=== PATIENT | male | born 1935 | race Two or more races ===

== ENCOUNTER 2020-04-18 14:45 | Emergency (ER) | payer MEDICARE, MEDICAID ==
[~2020-04-18] VITALS: Ht 165.1 cm; Wt 70.3 kg
[2020-04-18 14:58] VITALS: BP 185/61
[2020-04-18] MEDS ORDERED: cefTRIAXone SOD 1,000 MG VL IM ONE (16:15)
[2020-04-18] MEDS ORDERED: LIDOCAINE 1% HCL (LOCAL ANESTH.) INJ 20ML MDV IJ ONE (16:15)
== END 2020-04-18 17:00 | disposition home or self-care (01) ==
LOC: ER 14:45
DX: L02.416 Cutaneous abscess of left lower limb (principal); E11.9 Type 2 diabetes mellitus without complications; I10 Essential (primary) hypertension
CPT/HCPCS: 10060; 87075; 87205; 96372; 99283; J0696; J2001

== ENCOUNTER 2020-04-21 15:45 | Emergency (ER) | payer MEDICARE, MEDICAID ==
[~2020-04-21] VITALS: Ht 165.1 cm; Wt 69.9 kg
[2020-04-21 16:25] VITALS: BP 138/66
== END 2020-04-21 17:16 | disposition home or self-care (01) ==
LOC: ER 15:45
DX: L02.416 Cutaneous abscess of left lower limb (principal); E11.9 Type 2 diabetes mellitus without complications; I10 Essential (primary) hypertension

== ENCOUNTER 2020-04-24 10:28 | Emergency (ER) | payer MEDICARE, MEDICAID ==
[~2020-04-24] VITALS: Ht 165.1 cm; Wt 65.8 kg
[2020-04-24 10:44] VITALS: BP 169/69
== END 2020-04-24 12:01 | disposition home or self-care (01) ==
LOC: ER 10:28
DX: L02.416 Cutaneous abscess of left lower limb (principal); E11.9 Type 2 diabetes mellitus without complications; I10 Essential (primary) hypertension

== ENCOUNTER 2020-06-13 12:36 | Inpatient (IN) | payer MEDICARE, MEDICAID ==
[~2020-06-13] VITALS: Ht 165.1 cm; Wt 65.8 kg
[2020-06-13 15:01] LABS: Basophils # (auto) 0 10 ^3/uL (0-0.2); Basophils % (auto) 0.7 % (0.0-2.0); Eosinophils # (auto) 0.3 10 ^3/uL (0-0.8); Eosinophils % (auto) 4.6 % (0.0-7.0); Hematocrit 43.5 % (41.0-53.0); Hemoglobin 14.8 g/dL (13.5-17.5); Lymphocytes # (auto) 1.7 10 ^3/uL (0.4-5.4); Lymphocytes % (auto) 27.8 % (10.0-50.0); Mean Corpuscular Hemoglobin 33.7 pg (28.0-32.0); Mean Corpuscular Volume 99.2 fL (80.0-100.0); Monocytes # (auto) 0.6 10 ^3/uL (0-1.3); Monocytes % (auto) 9.4 % (0.0-12.0); Neutrophils # (auto) 3.5 10 ^3/uL (1.6-8.6); Neutrophils % (auto) 57.5 % (37.0-80.0); Nucleated Red Blood Cells % 0.4 %; Red Blood Cells 4.39 10^6/uL (4.5-5.90); Red Cell Distribution Width 14.2 % (11.8-14.3)
[2020-06-13 15:22] LABS: Chloride 110 mmol/L (98-107); Potassium 4.1 mmol/L (3.5-5.1); Sodium 140 mmol/L (136-145)
[2020-06-13 15:27] LABS: Alanine Aminotransferase 18 U/L (16-61); Albumin 3.5 g/dL (3.4-5.0); Alkaline Phosphatase 88 U/L (45-117); Anion Gap 2 (5-15); Aspartate Aminotransferase 18 U/L (15-37); Bilirubin, Total 0.6 mg/dL (0.2-1.0); Blood Urea Nitrogen 13 mg/dL (7-18); Calcium 8.7 mg/dL (8.5-10.1); Carbon Dioxide 28 mmol/L (21-32); GFR African American 99 mL/min; GFR Non-African American 82 mL/min; Glucose 89 mg/dL (74-106); Total Protein 7.8 g/dL (6.4-8.2)
[2020-06-13] MEDS ORDERED: cloNIDine HCL 0.1 MG TAB PO ONE (21:30)
[2020-06-13 22:11] LABS: INR 1.04 (0.9-1.15); Partial Thromboplastin Time 26.4 sec (23.0-31.2)
[2020-06-14] MEDS ORDERED: ACETAMINOPHEN 500 MG TAB PO PRN (03:30)
[2020-06-14] MEDS ORDERED: MORPHINE SULFATE INJECTION 2 MG/ML SYRG IV PRN ×2 (03:30)
[2020-06-14] MEDS ORDERED: ONDANSETRON HCL 4 MG/2 ML VIAL IV PRN (03:30)
[2020-06-14] MEDS ORDERED: NITROGLYCERIN 0.4 MG SL TAB SL PRN (03:30)
[2020-06-14] MEDS ORDERED: DEXTROSE (50%) 50ML SYRG IV PRN (03:30)
[2020-06-14] MEDS ORDERED: HYDROcodone-ACET 5/325MG TAB PO PRN (03:30)
[2020-06-14] MEDS ORDERED: ATE50T PO (03:58)
[2020-06-14] MEDS ORDERED: GLIP5TAB12 PO (04:00)
[2020-06-14] MEDS ORDERED: BENA40TA8 PO (04:01)
[2020-06-14] MEDS ORDERED: SIMV-8 PO (04:02)
[2020-06-14] MEDS ORDERED: HYDR50TA15 PO (04:04)
[2020-06-14 05:00] VITALS: BP 149/68
[2020-06-14 05:16] VITALS: BP 145/65
[2020-06-14] MEDS ORDERED: PNEUMOCOCCAL VACC POLYS 25 MCG/0.5 ML VIAL IM ONE (05:45)
[2020-06-14] MEDS: CLINDAMYCIN 300MG IV 50 ML IV SCH ×2 (06:33→14:09)
[2020-06-14] MEDS: ACCU-CHEK COMFORT CURVE STRIP VI SCH ×3 (06:55→17:00)
[2020-06-14] MEDS: InsuLIN REG 1unit/0.01ml Soln (100units/ml) SC SCH ×3 (06:56→17:00)
[2020-06-14 08:45] VITALS: BP 157/69
[2020-06-14] MEDS ORDERED: HYDROCORTISONE 2.5% TOPICAL CREAM 30GM TUBE TOP SCH (10:00)
[2020-06-14] MEDS ORDERED: amLODIPine BESYLATE 5 MG TAB PO SCH (10:00)
[2020-06-14] MEDS ORDERED: FAMOTIDINE 20 MG TAB PO SCH (10:00)
[2020-06-14 15:34] VITALS: BP 157/69
[2020-06-14 17:00] VITALS: BP 169/82
[2020-06-14] MEDS ORDERED: glipiZIDE 5 MG TAB PO SCH (18:00)
[2020-06-14] MEDS ORDERED: ATORVASTATIN 20 MG TAB PO SCH (22:00)
[2020-06-14] MEDS ORDERED: hydrALAZINE HCL 25 MG TAB PO SCH (22:00)
[2020-06-15] MEDS ORDERED: BENAZEPRIL HCL 10 MG TAB PO SCH (10:00)
[2020-06-15] MEDS ORDERED: ATENOLOL 50 MG TAB PO SCH (10:00)
== END 2020-06-14 17:55 | disposition home or self-care (01) | DRG 606 ==
LOC: ER 12:36 → TELE 06-14 03:29 → TELE-WESTW 06-14 04:43
PROVIDERS: ADMIT Nurse Practitioner Acute Care; ATTEND Internal Medicine Geriatric Medicine
DX: L23.9 Allergic contact dermatitis, unspecified cause (principal); I50.43 Acute on chronic combined systolic (congestive) and diastolic (congestive) heart failure; B35.3 Tinea pedis; E11.9 Type 2 diabetes mellitus without complications; D69.6 Thrombocytopenia, unspecified; I11.0 Hypertensive heart disease with heart failure; Z20.822 Contact with and (suspected) exposure to COVID-19; Z28.21 Immunization not carried out because of patient refusal
CPT/HCPCS: 36415; 71045; 80053; 82962; 83036; 83880; 84484; 85025; 85610; 85730; 87426; 93005; 93970; G0378; J3490

== ENCOUNTER 2020-10-16 11:53 | Inpatient (IN) | payer OTHER, MEDICAID ==
[~2020-10-16] VITALS: Ht 162.6 cm; Wt 63.5 kg
[~2020-10-16 11:53] MED LIST: ATE50T PO; BENA40TA8 PO; GLIP5TAB12 PO; HYDR50TA15 PO; SIMV-8 PO
[2020-10-16 12:47] LABS: Eosinophils # (auto) 0.2 10 ^3/uL (0-0.8); Lymphocytes # (auto) 1.9 10 ^3/uL (0.4-5.4); Monocytes # (auto) 0.6 10 ^3/uL (0-1.3); Nucleated Red Blood Cells % 0.1 %
[2020-10-16 12:49] LABS: Basophils # (auto) 0.1 10 ^3/uL (0-0.2); Basophils % (auto) 0.8 % (0.0-2.0); Eosinophils % (auto) 2.4 % (0.0-7.0); Hematocrit 39.4 % (41.0-53.0); Hemoglobin 13.5 g/dL (13.5-17.5); Lymphocytes % (auto) 30.6 % (10.0-50.0); Mean Corpuscular Hemoglobin 34.5 pg (28.0-32.0); Mean Corpuscular Hgb Conc. 34.2 g/dL (32.0-36.0); Mean Corpuscular Volume 100.9 fL (80.0-100.0); Monocytes % (auto) 9.5 % (0.0-12.0); Neutrophils # (auto) 3.6 10 ^3/uL (1.6-8.6); Neutrophils % (auto) 56.7 % (37.0-80.0); Red Blood Cells 3.91 10^6/uL (4.5-5.90); Red Cell Distribution Width 13.7 % (11.8-14.3); White Blood Cell 6.3 10^3/uL (4.4-10.8)
[2020-10-16 12:58] LABS: Albumin 3.1 g/dL (3.4-5.0); Anion Gap 7 (5-15); Blood Urea Nitrogen 37 mg/dL (7-18); Calcium 8.5 mg/dL (8.5-10.1); Carbon Dioxide 25 mmol/L (21-32); Chloride 106 mmol/L (98-107); Glucose 148 mg/dL (74-106); Magnesium 2.5 mg/dL (1.6-2.6); Potassium 3.8 mmol/L (3.5-5.1); Sodium 138 mmol/L (136-145)
[2020-10-16 13:04] LABS: Alanine Aminotransferase 17 U/L (16-61); Alkaline Phosphatase 82 U/L (45-117); Aspartate Aminotransferase 16 U/L (15-37); BUN/Creatinine Ratio 20.1; Bilirubin, Total 0.6 mg/dL (0.2-1.0); GFR African American 45 mL/min; GFR Non-African American 37 mL/min
[2020-10-16] MEDS ORDERED: NITROGLYCERIN 0.4 MG SL TAB SL PRN ×2 (13:15→14:30)
[2020-10-16] MEDS ORDERED: LACTATED RINGER'S 1,000 ML IV ONE ×2 (13:15→14:00)
[2020-10-16] MEDS ORDERED: MORPHINE SULFATE INJECTION 2 MG/ML SYRG IV PRN ×3 (13:15→14:30)
[2020-10-16] MEDS ORDERED: ATROPINE SULF 1 MG/10ml SYR IV PRN (13:15)
[2020-10-16] MEDS ORDERED: TAMS0.4C36 PO (13:33)
[2020-10-16] MEDS ORDERED: CHOL50004 PO (13:33)
[2020-10-16] MEDS ORDERED: SIMV5TAB50 PO (13:33)
[2020-10-16] MEDS ORDERED: HYDR25TA87 PO (13:33)
[2020-10-16] MEDS ORDERED: DONE5TAB80 PO (13:33)
[2020-10-16] MEDS ORDERED: hydrALAZINE HCL 20 MG/ML VL IV PRN (14:00)
[2020-10-16] MEDS ORDERED: cefTRIAXone 1GM/50ML D5W 50 ML IV ONE (14:00)
[2020-10-16] MEDS ORDERED: ISOSORBIDE MONONITRATE ER 60 MG TAB PO ONE (14:00)
[2020-10-16] MEDS ORDERED: MECLIZINE HCL 25 MG TAB PO ONE (14:00)
[2020-10-16] MEDS ORDERED: MECLIZINE HCL 25 MG TAB PO PRN (14:00)
[2020-10-16] MEDS ORDERED: FOLIC ACID 1 MG TAB PO ONE (14:00)
[2020-10-16] MEDS ORDERED: CYANOCOBALAMIN 500 MCG TAB PO ONE (14:00)
[2020-10-16 14:20] LABS: Cholesterol 171 mg/dL (< 200)
[2020-10-16 14:25] LABS: HDL Cholesterol 30 mg/dL (40-59); LDL Cholesterol 109 mg/dL (< 100); Triglycerides 234 mg/dL (< 150)
[2020-10-16] MEDS ORDERED: ENOXAPARIN SOD 30 MG/0.3 ML SYRINGE SC ONE (14:30)
[2020-10-16] MEDS ORDERED: ONDANSETRON HCL 4 MG/2 ML VIAL IV PRN (14:30)
[2020-10-16] MEDS ORDERED: ACETAMINOPHEN 325 MG TAB PO PRN (14:30)
[2020-10-16] MEDS ORDERED: ALUM & MAG HYDROX-SIMETH LIQ(MAALOX) 30 ML PO PRN (14:30)
[2020-10-16] MEDS ORDERED: LORazepam 0.5 MG TAB PO PRN (14:30)
[2020-10-16] MEDS ORDERED: HYDROcodone-ACET 5/325MG TAB PO PRN (14:30)
[2020-10-16] MEDS ORDERED: DEXTROSE (50%) 50ML SYRG IV PRN (14:30)
[2020-10-16] MEDS ORDERED: DOCUSATE SOD 100 MG CAP PO PRN (14:30)
[2020-10-16] MEDS ORDERED: ALBUTEROL SULF 2.5 MG/0.5ML(0.5%) NEB SOLN NEB ONE (15:00)
[2020-10-16] MEDS: SODIUM CHLORIDE 0.9% 1,000 ML IV SCH (17:38)
[2020-10-16] MEDS: InsuLIN REG 1unit/0.01ml Soln (100units/ml) SC SCH ×2 (18:08→22:38)
[2020-10-16] MEDS: ACCU-CHEK COMFORT CURVE STRIP VI SCH ×2 (18:08→22:27)
[2020-10-16] MEDS: FUROSEMIDE 20 MG/2 ML VIAL IV SCH (18:36)
[2020-10-16] MEDS: TAMSULOSIN HYDROCHLORIDE 0.4 MG CAP PO SCH (18:37)
[2020-10-16 18:50] LABS: Alcohol, Urine < 3.0 mg/dL (0-10); Amphetamine Screen, Urine NEGATIVE (NEGATIVE); Barbiturate Scree,Urine NEGATIVE (NEGATIVE); Benzodiazephine Screen, Urine NEGATIVE (NEGATIVE); Cannabinoid Screen, Urine NEGATIVE (NEGATIVE); Cocaine Screen, Urine NEGATIVE (NEGATIVE); Opiate Scree,Urine NEGATIVE (NEGATIVE); Phencyclidine Screen, Urine NEGATIVE (NEGATIVE)
[2020-10-16 18:56] LABS: Urine Bacteria NONE SEEN /hpf (None Seen); Urine Blood Negative /uL (Negative); Urine Specific Gravity 1.005 (1.001-1.035); Urine WBC 5 /hpf (0 - 3)
[2020-10-16] MEDS: ALBUTEROL SULF 2.5 MG/0.5ML(0.5%) NEB SOLN NEB PRN (19:20)
[2020-10-16] MEDS: IPRATROPIUM BROM 0.5 MG/2.5ML INH SOL NEB SCH ×2 (19:20→22:00)
[2020-10-16] MEDS: ATORVASTATIN 20 MG TAB PO SCH (22:38)
[2020-10-17] MEDS: IPRATROPIUM BROM 0.5 MG/2.5ML INH SOL NEB SCH ×5 (02:00→19:54)
[2020-10-17] MEDS: SODIUM CHLORIDE 0.9% 1,000 ML IV SCH ×2 (02:41→17:01)
[2020-10-17] MEDS: FUROSEMIDE 20 MG/2 ML VIAL IV SCH ×2 (06:18→20:03)
[2020-10-17] MEDS: ALBUTEROL SULF 2.5 MG/0.5ML(0.5%) NEB SOLN NEB PRN ×2 (06:19→10:30)
[2020-10-17] MEDS: ACCU-CHEK COMFORT CURVE STRIP VI SCH ×4 (06:32→23:10)
[2020-10-17] MEDS: InsuLIN REG 1unit/0.01ml Soln (100units/ml) SC SCH ×4 (06:36→21:38)
[2020-10-17] MEDS: FOLIC ACID 1 MG TAB PO SCH (09:37)
[2020-10-17] MEDS: cefTRIAXone 1GM/50ML D5W 50 ML IV SCH (09:37)
[2020-10-17] MEDS: CYANOCOBALAMIN 500 MCG TAB PO SCH (09:37)
[2020-10-17] MEDS: ASPirin 81 mg TAB PO SCH (09:37)
[2020-10-17] MEDS: ENOXAPARIN SOD 30 MG/0.3 ML SYRINGE SC SCH (09:38)
[2020-10-17] MEDS: ISOSORBIDE MONONITRATE ER 60 MG TAB PO SCH (10:16)
[2020-10-17] MEDS ORDERED: TIMO0.5S28 EACHEYE (19:09)
[2020-10-17] MEDS ORDERED: POM EACHEYE (19:09)
[2020-10-17] MEDS ORDERED: LATA0.0019 EACHEYE (19:09)
[2020-10-17] MEDS: TAMSULOSIN HYDROCHLORIDE 0.4 MG CAP PO SCH (20:03)
[2020-10-17] MEDS ORDERED: IPRATROPIUM BROM 0.5 MG/2.5ML INH SOL NEB PRN (20:30)
[2020-10-17 22:00] VITALS: BP 130/74
[2020-10-17] MEDS: ATORVASTATIN 20 MG TAB PO SCH (23:10)
[2020-10-18 05:37] VITALS: BP 140/69
[2020-10-18 06:12] LABS: Albumin 2.9 g/dL (3.4-5.0); Calcium 8.9 mg/dL (8.5-10.1); Potassium 3.6 mmol/L (3.5-5.1)
[2020-10-18 06:15] LABS: BUN/Creatinine Ratio 24.5; Bilirubin, Total 0.6 mg/dL (0.2-1.0); Total Protein 6.6 g/dL (6.4-8.2)
[2020-10-18 06:17] LABS: Basophils # (auto) 0 10 ^3/uL (0-0.2); Basophils % (auto) 0.4 % (0.0-2.0); Eosinophils # (auto) 0.2 10 ^3/uL (0-0.8); Eosinophils % (auto) 3.3 % (0.0-7.0); Hemoglobin 12.8 g/dL (13.5-17.5); Lymphocytes # (auto) 1.9 10 ^3/uL (0.4-5.4); Mean Corpuscular Hgb Conc. 34.7 g/dL (32.0-36.0); Mean Corpuscular Volume 100.8 fL (80.0-100.0); Monocytes # (auto) 0.6 10 ^3/uL (0-1.3); Monocytes % (auto) 8.9 % (0.0-12.0); Neutrophils # (auto) 3.6 10 ^3/uL (1.6-8.6); Neutrophils % (auto) 57.4 % (37.0-80.0); Nucleated Red Blood Cells % 0.1 %; Red Blood Cells 3.67 10^6/uL (4.5-5.90); Red Cell Distribution Width 13.9 % (11.8-14.3); White Blood Cell 6.3 10^3/uL (4.4-10.8)
[2020-10-18] MEDS: FUROSEMIDE 20 MG/2 ML VIAL IV SCH (06:30)
[2020-10-18] MEDS: InsuLIN REG 1unit/0.01ml Soln (100units/ml) SC SCH ×2 (06:30→11:16)
[2020-10-18] MEDS: ACCU-CHEK COMFORT CURVE STRIP VI SCH ×2 (06:31→11:15)
[2020-10-18] MEDS: SODIUM CHLORIDE 0.9% 1,000 ML IV SCH (06:31)
[2020-10-18 09:00] VITALS: BP_SYST 130; BP_SYST 164; BP_DIAS 76; BP_DIAS 84
[2020-10-18] MEDS: ASPirin 81 mg TAB PO SCH (09:10)
[2020-10-18] MEDS: cefTRIAXone 1GM/50ML D5W 50 ML IV SCH (09:10)
[2020-10-18] MEDS: FOLIC ACID 1 MG TAB PO SCH (09:11)
[2020-10-18] MEDS: ISOSORBIDE MONONITRATE ER 60 MG TAB PO SCH (09:11)
[2020-10-18] MEDS: CYANOCOBALAMIN 500 MCG TAB PO SCH (09:12)
[2020-10-18] MEDS: ENOXAPARIN SOD 30 MG/0.3 ML SYRINGE SC SCH (09:12)
[2020-10-18 12:17] VITALS: BP 164/84
== END 2020-10-18 15:30 | disposition home or self-care (01) | DRG 683 ==
LOC: ER 11:53 → TELE 13:08 → TELE-WESTW 10-17 18:32
PROVIDERS: ADMIT Hospitalist; ATTEND Hospitalist
DX: N17.0 Acute kidney failure with tubular necrosis (principal); I13.0 Hypertensive heart and chronic kidney disease with heart failure and stage 1 through stage 4 chronic kidney disease, or unspecified chronic kidney disease; N13.8 Other obstructive and reflux uropathy; N39.0 Urinary tract infection, site not specified; R55 Syncope and collapse; R00.1 Bradycardia, unspecified; Z20.822 Contact with and (suspected) exposure to COVID-19; D75.89 Other specified diseases of blood and blood-forming organs; E11.22 Type 2 diabetes mellitus with diabetic chronic kidney disease; E78.5 Hyperlipidemia, unspecified; F01.50 Vascular dementia, unspecified severity, without behavioral disturbance, psychotic disturbance, mood disturbance, and anxiety; F17.210 Nicotine dependence, cigarettes, uncomplicated; I50.9 Heart failure, unspecified; J44.9 Chronic obstructive pulmonary disease, unspecified; N18.32 Chronic kidney disease, stage 3b; N40.1 Benign prostatic hyperplasia with lower urinary tract symptoms; Z79.84 Long term (current) use of oral hypoglycemic drugs; Z79.899 Other long term (current) drug therapy; Z86.73 Personal history of transient ischemic attack (TIA), and cerebral infarction without residual deficits
CPT/HCPCS: 36415; 70450; 71045; 76705; 76775; 80053; 80061; 80307; 81001; 82306; 82962; 83036; 83735; 83880; 83970; 84100; 84154; 84443; 84484; 85025; 87040; 87086; 87426; 93005; 93306; 93886; 94640; 96365; 96366; 96372; 99291; G0378; J0696; J1815